=== PATIENT | male | born 1980 | race American Indian/Alaskan Native ===

== ENCOUNTER 2017-02-02 09:21 | Emergency (ER) | payer OTHER ==
[2017-02-02] MEDS ORDERED: MOTRIN PO ONE (11:59)
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
--- NOTE | 2017-02-02 14:23 | XRay Report ---
LEFT SHOULDER: History: Pain. Routine views demonstrate normal bony and soft tissue structures with normal joint alignment of the shoulder. IMPRESSION: Normal study.
[2017-02-02 14:32] VITALS: BP 116/80
== END 2017-02-02 14:45 | disposition home or self-care (01) ==
LOC: ED 09:21
DX: S13.4XXA Sprain of ligaments of cervical spine, initial encounter (principal); S46.912A Strain of unspecified muscle, fascia and tendon at shoulder and upper arm level, left arm, initial encounter; F17.200 Nicotine dependence, unspecified, uncomplicated; V49.59XA Passenger injured in collision with other motor vehicles in traffic accident, initial encounter; X58.XXXA Exposure to other specified factors, initial encounter; Y93.89 Activity, other specified; Y92.89 Other specified places as the place of occurrence of the external cause; Y99.8 Other external cause status